=== PATIENT | male | born 1960 | race Caucasian/White ===

== ENCOUNTER 2023-06-21 06:33 | Outpatient (CLI) | payer OTHER, SELFPAY ==
--- NOTE | 2023-06-21 06:59 | CT_ITS ---
WS: [id number] CT NECK TECHNIQUE: Contrast-enhanced CT of the neck with coronal and sagittal reformatted images. CLINICAL INFORMATION: LOCALIZED SWELLING, MASS AND LUMP, NECK, DISEASES OF TONGUE COMPARISON: None. DLP: 244.[address] scans at [facility] use at least one of these dose optimization techniques: automated e xposure control; mA and/or kV adjustment per patient size (includes targeted exams where dose is matc hed to clinical indication); or iterative reconstruction. FINDINGS: Palpable marker overlying the dorsal LEFT neck soft tissues. No evidence of underlying mass or lesion . Mastoid air cells and paranasal sinuses are well aerated. Normal submandibular glands. Normal parot id glands. No cervical lymphadenopathy. No cervical lymphadenopathy. Normal parapharyngeal fat. Small polypoid lesion in the LEFT tongue base at the vallecula measuring 8 mm. Recommend direct visualization. IMPRESSION: 1. 8 mm polypoid lesion at the LEFT tongue base just above the vallecula. Recommend direct visualiza tion. 2. No cervical lymphadenopathy. 3. No lesions deep to the palpable marker LEFT posterior neck. 4. Normal salivary glands.
[2023-06-21 07:20] LABS: Blood Urea Nitrogen 12 mg/dL (8-23); Glomerular Filtration Rate 85.2 mL/min (90-130)
[2023-06-21] MEDS: iohexol 350 mg/mL 500 mL Btl (per mL) IV (07:36)
== END 2023-06-21 06:34 | disposition home or self-care (01) ==
LOC: RAD 06:33
PROVIDERS: Visit Provider Specialist
DX: K14.9 Disease of tongue, unspecified (principal); R22.1 Localized swelling, mass and lump, neck
CPT/HCPCS: 70491; 82565; 84520; Q9967